=== PATIENT | male | born 1975 | race Two or more races ===

== ENCOUNTER 2017-05-29 05:32 | Inpatient (IN) | payer BC, OTHER ==
[2017-05-29] VITALS (8 sets, daily range): BP systolic 100–160; BP diastolic 70–109
[~2017-05-29] VITALS: Ht 180.3 cm; Wt 82.1 kg
[2017-05-29 06:59] LABS: BASOPHILS % 0.9 % (0.0-2.0); EOSINOPHILS % 0.7 % (0.0-5.0); HEMATOCRIT. 45.9 % (42.0-52.0); HEMOGLOBIN. 16.5 g/dL (14.0-18.0); LYMPHOCYTES % 27.4 % (20.0-50.0); MEAN CORPUSCULAR HEMOGLOBIN 31.7 pg (28.0-32.0); MEAN CORPUSCULAR VOLUME 88.4 fL (80.0-94.0); MEAN PLATELET VOLUME 9.1 fl (7.4-10.4); MONOCYTES % 10.3 % (2.0-8.0); NEUTROPHILS % 60.7 % (40.0-76.0); PLATELET 342 x1000/uL (130-400); RED BLOOD CELL COUNT 5.19 mill/uL (4.7-6.1); RED CELL DISTRIBUTION WIDTH 12.8 % (11.6-14.6)
[2017-05-29 07:02] LABS: PARTIAL THROMBOPLASTIN TIME 28.9 sec (23.4-31.0); PROTHROMBIN TIME 10.8 sec (9.4-11.6)
[2017-05-29 07:18] LABS: BG BASE EXCESS -2.6 mmol/L (-2.0-2.0); BG BILEVEL POS AIRWAY PRESSURE ST=15/5; BG CARBOXYHEMOGLOBIN 2.6 % (0.5-1.5); BG DEOXYHEMOGLOBIN 6.2 % (0.0-5.0); BG FRACTION INSPIRED OXYGEN 60; BG HCO3 ACT 21.6 mmol/L (22.0-26.0); BG METHEMOGLOBIN 0.2 % (0.0-1.5); BG OXYGEN SATURATION 93.6 % (92.0-98.5); BG PCO2 36.5 mmHg (35.0-45.0); BG PH 7.391 (7.350-7.450); BG PRESSURE SUPPORT 10; BG SAMPLE SITE RIGHT BRACHIAL; BG TOTAL HEMOGLOBIN 16.6 g/dL (12.0-18.0); BG VENT MODE MASK - BIPAP; BG VENT RATE 20 set
[2017-05-29 07:22] LABS: CARBON DIOXIDE 23 mEq/L (21-32); CHLORIDE 96 mEq/L (98-107)
[2017-05-29] MEDS ORDERED: LEVOFLOXACIN 750MG PREMIX 150 ML IV ONE (07:45)
[2017-05-29] MEDS ORDERED: CEFTRIAXONE 2 G PREMIX 50 ML IV ONE (07:45)
[2017-05-29] MEDS ORDERED: ENOXAPARIN 80MG/0.8ML SYR SUBCUT NR (08:00)
[2017-05-29] MEDS ORDERED: ASPIRIN 325MG EC TABLET PO NR (08:00)
[2017-05-29] MEDS ORDERED: NITROGLYCERIN 50MG PREMIX 250 ML IV PRN (08:59)
[2017-05-29] MEDS ORDERED: NITROGLYCERIN 0.4MG TABLET SL SL PRN (09:00)
[2017-05-29 10:38] LABS: TROPONIN I 4.4 ng/mL (0.00-0.04)
[2017-05-29] MEDS ORDERED: ASPIRIN 325MG TABLET PO SCH (13:00)
[2017-05-29] MEDS ORDERED: POTASSIUM CHLORIDE 20MEQ TABLET SR PO SCH (13:00)
[2017-05-29] MEDS ORDERED: FUROSEMIDE 40MG/4ML VIAL IVP SCH (13:00)
[2017-05-29] MEDS: ENOXAPARIN 100MG/ML SYR SUBCUT SCH ×2 (13:42→21:39)
[2017-05-29] MEDS: LISINOPRIL 5MG TABLET PO SCH (13:42)
[2017-05-29] MEDS: DOCUSATE SODIUM 100MG CAPSULE PO SCH (13:43)
[2017-05-29] MEDS: METOPROLOL TARTRATE 50MG TABLET PO SCH ×2 (13:43→21:38)
[2017-05-29] MEDS: NITROGLYCERIN OINT 1GM/INCH UDPKT TD SCH ×2 (13:44→17:08)
[2017-05-29] MEDS: AMLODIPINE 5MG TABLET PO SCH (21:00)
[2017-05-29] MEDS ORDERED: ATORVASTATIN CALCIUM 10MG TABLET PO SCH (21:00)
[2017-05-29 23:02] LABS: *AMPHETAMINES SCREEN URINE NEGATIVE (NEGATIVE); *BARBITURATES SCREEN URINE NEGATIVE (NEGATIVE); *BENZODIAZEPINES SCREEN URINE NEGATIVE (NEGATIVE); *COCAINE SCREEN URINE NEGATIVE (NEGATIVE); CANNABINOID URINE SCREEN NEGATIVE (NEGATIVE); METHADONE URINE SCREEN NEGATIVE (NEGATIVE); OPIATES URINE SCREEN NEGATIVE (NEGATIVE); PHENCYCLIDINE URINE SCREEN NEGATIVE (NEGATIVE)
[2017-05-30] VITALS (15 sets, daily range): BP systolic 91–112; BP diastolic 62–79
[2017-05-30] MEDS: NITROGLYCERIN OINT 1GM/INCH UDPKT TD SCH ×4 (06:00→17:17)
[2017-05-30] MEDS: ENOXAPARIN 100MG/ML SYR SUBCUT SCH (08:06)
[2017-05-30] MEDS: ASPIRIN 325MG TABLET PO SCH (08:06)
[2017-05-30] MEDS: DOCUSATE SODIUM 100MG CAPSULE PO SCH (08:07)
[2017-05-30] MEDS: LISINOPRIL 5MG TABLET PO SCH (08:08)
[2017-05-30] MEDS: AMLODIPINE 5MG TABLET PO SCH ×2 (08:08→23:00)
[2017-05-30] MEDS: METOPROLOL TARTRATE 25MG TABLET PO SCH ×2 (08:08→21:32)
[2017-05-30 08:09] LABS: BASOPHILS % 0.9 % (0.0-2.0); EOSINOPHILS % 0.3 % (0.0-5.0); HEMATOCRIT. 38.5 % (42.0-52.0); HEMOGLOBIN. 13.7 g/dL (14.0-18.0); LYMPHOCYTES % 23.7 % (20.0-50.0); MEAN CORPUSCULAR HEMOGLOBIN 31.2 pg (28.0-32.0); MEAN CORPUSCULAR VOLUME 87.3 fL (80.0-94.0); MEAN PLATELET VOLUME 9.2 fl (7.4-10.4); MONOCYTES % 11.6 % (2.0-8.0); NEUTROPHILS % 63.5 % (40.0-76.0); PLATELET 301 x1000/uL (130-400); RED CELL DISTRIBUTION WIDTH 12.6 % (11.6-14.6)
[2017-05-30 08:29] LABS: CARBON DIOXIDE 27 mEq/L (21-32); CHLORIDE 97 mEq/L (98-107)
[2017-05-30] MEDS ORDERED: DEXTROSE 50% WATER 50ML SYRINGE IV PRN (10:45)
[2017-05-30 11:17] LABS: BG BASE EXCESS 2.8 mmol/L (-2.0-2.0); BG BILEVEL POS AIRWAY PRESSURE ST=15/5; BG CARBOXYHEMOGLOBIN 0.3 % (0.5-1.5); BG DEOXYHEMOGLOBIN 1.6 % (0.0-5.0); BG FRACTION INSPIRED OXYGEN 60; BG HCO3 ACT 27.1 mmol/L (22.0-26.0); BG METHEMOGLOBIN 0.3 % (0.0-1.5); BG OXYGEN SATURATION 98.4 % (92.0-98.5); BG OXYHEMOGLOBIN 97.8 % (94.0-97.0); BG PCO2 40.6 mmHg (35.0-45.0); BG PH 7.443 (7.350-7.450); BG PO2 149.3 mmHg (75.0-100.0); BG PRESSURE SUPPORT 10; BG SAMPLE SITE RIGHT BRACHIAL; BG TOTAL HEMOGLOBIN 13.7 g/dL (12.0-18.0); BG VENT MODE MASK - BIPAP; BG VENT RATE 14 set
[2017-05-30] MEDS: BLOOD SUGAR DIAGNOSTIC STRIP TEST SCH ×3 (11:41→21:42)
[2017-05-30] MEDS: INSULIN LISPRO 100 UNITS/ML SUBCUT SCH ×3 (12:38→21:49)
[2017-05-30] MEDS ORDERED: FUROSEMIDE 40MG/4ML VIAL IVP NR (18:00)
[2017-05-30] MEDS: IPRATROPIUM/ALBUTEROL 0.5-3(2.5)MG/3ML NEB HHN SCH (20:43)
[2017-05-30] MEDS: LEVOFLOXACIN 500MG PREMIX 100 ML IV SCH (20:49)
[2017-05-30] MEDS: ATORVASTATIN CALCIUM 20MG TABLET PO SCH (21:30)
[2017-05-30] MEDS: ENOXAPARIN 80MG/0.8ML SYR SUBCUT SCH (21:34)
[2017-05-31] VITALS (16 sets, daily range): BP systolic 98–141; BP diastolic 52–79
[2017-05-31] MEDS: IPRATROPIUM/ALBUTEROL 0.5-3(2.5)MG/3ML NEB HHN SCH ×6 (00:23→21:17)
[2017-05-31] MEDS: NITROGLYCERIN OINT 1GM/INCH UDPKT TD SCH ×5 (00:25→23:51)
[2017-05-31] MEDS: BLOOD SUGAR DIAGNOSTIC STRIP TEST SCH ×4 (06:16→21:33)
[2017-05-31] MEDS: INSULIN LISPRO 100 UNITS/ML SUBCUT SCH ×4 (07:45→21:33)
[2017-05-31] MEDS: DOCUSATE SODIUM 100MG CAPSULE PO SCH (08:27)
[2017-05-31] MEDS: ASPIRIN 325MG TABLET PO SCH (08:27)
[2017-05-31] MEDS: FUROSEMIDE 40MG/4ML VIAL IVP SCH (08:27)
[2017-05-31] MEDS: LISINOPRIL 5MG TABLET PO SCH (08:28)
[2017-05-31] MEDS: METOPROLOL TARTRATE 25MG TABLET PO SCH ×2 (08:28→21:28)
[2017-05-31] MEDS: AMLODIPINE 5MG TABLET PO SCH ×2 (08:28→21:00)
[2017-05-31] MEDS: ENOXAPARIN 80MG/0.8ML SYR SUBCUT SCH ×2 (08:29→21:29)
[2017-05-31] MEDS ORDERED: PNEUMOCOCCAL 23-VAL P-SAC VAC 0.5 ML IM ONE (09:00)
[2017-05-31 10:29] LABS: BASOPHILS % 1.4 % (0.0-2.0); EOSINOPHILS % 0.7 % (0.0-5.0); HEMATOCRIT. 39.7 % (42.0-52.0); HEMOGLOBIN. 13.8 g/dL (14.0-18.0); LYMPHOCYTES % 25.9 % (20.0-50.0); MEAN CORPUSCULAR HEMOGLOBIN 30.6 pg (28.0-32.0); MEAN CORPUSCULAR VOLUME 87.6 fL (80.0-94.0); MEAN PLATELET VOLUME 8.6 fl (7.4-10.4); MONOCYTES % 12.1 % (2.0-8.0); NEUTROPHILS % 59.9 % (40.0-76.0); PLATELET 309 x1000/uL (130-400); RED BLOOD CELL COUNT 4.53 mill/uL (4.7-6.1); RED CELL DISTRIBUTION WIDTH 12.6 % (11.6-14.6)
[2017-05-31 11:05] LABS: CARBON DIOXIDE 30 mEq/L (21-32); CHLORIDE 92 mEq/L (98-107)
[2017-05-31] MEDS ORDERED: POTASSIUM CHLORIDE 20MEQ/PACKET PO SCH (12:15)
[2017-05-31] MEDS: ACETAMINOPHEN 325MG TABLET PO PRN ×2 (17:24→22:19)
[2017-05-31] MEDS: LEVOFLOXACIN 500MG PREMIX 100 ML IV SCH (19:48)
[2017-05-31] MEDS: ATORVASTATIN CALCIUM 20MG TABLET PO SCH (21:30)
[2017-06-01] VITALS (12 sets, daily range): BP systolic 94–129; BP diastolic 44–76
[2017-06-01] MEDS: IPRATROPIUM/ALBUTEROL 0.5-3(2.5)MG/3ML NEB HHN SCH ×6 (01:30→20:53)
[2017-06-01] MEDS: NITROGLYCERIN OINT 1GM/INCH UDPKT TD SCH ×3 (05:42→17:33)
[2017-06-01] MEDS: BLOOD SUGAR DIAGNOSTIC STRIP TEST SCH ×4 (06:50→21:34)
[2017-06-01 07:41] LABS: BASOPHILS % 0.7 % (0.0-2.0); EOSINOPHILS % 0.4 % (0.0-5.0); HEMATOCRIT. 40.8 % (42.0-52.0); HEMOGLOBIN. 14.6 g/dL (14.0-18.0); LYMPHOCYTES % 27.9 % (20.0-50.0); MEAN CORPUSCULAR HEMOGLOBIN 31.5 pg (28.0-32.0); MEAN PLATELET VOLUME 9.1 fl (7.4-10.4); MONOCYTES % 13.1 % (2.0-8.0); NEUTROPHILS % 57.9 % (40.0-76.0); PLATELET 318 x1000/uL (130-400); RED BLOOD CELL COUNT 4.64 mill/uL (4.7-6.1); RED CELL DISTRIBUTION WIDTH 12.7 % (11.6-14.6)
[2017-06-01] MEDS: DOCUSATE SODIUM 100MG CAPSULE PO SCH (08:01)
[2017-06-01] MEDS: ASPIRIN 325MG TABLET PO SCH (08:03)
[2017-06-01] MEDS: AMLODIPINE 5MG TABLET PO SCH ×2 (08:03→21:32)
[2017-06-01] MEDS: ENOXAPARIN 80MG/0.8ML SYR SUBCUT SCH ×2 (08:03→21:34)
[2017-06-01] MEDS: LISINOPRIL 5MG TABLET PO SCH (08:03)
[2017-06-01] MEDS: METOPROLOL TARTRATE 25MG TABLET PO SCH ×2 (08:04→21:32)
[2017-06-01] MEDS: FUROSEMIDE 40MG/4ML VIAL IVP SCH (08:06)
[2017-06-01 08:11] LABS: CARBON DIOXIDE 26 mEq/L (21-32); CHLORIDE 95 mEq/L (98-107)
[2017-06-01] MEDS: INSULIN LISPRO 100 UNITS/ML SUBCUT SCH ×4 (08:11→22:15)
[2017-06-01] MEDS ORDERED: SODIUM CHLORIDE 0.45% 1,000 ML IV SCH (11:00)
[2017-06-01] MEDS: LEVOFLOXACIN 500MG PREMIX 100 ML IV SCH (21:31)
[2017-06-01] MEDS: ATORVASTATIN CALCIUM 20MG TABLET PO SCH (21:31)
[2017-06-02] VITALS (28 sets, daily range): BP systolic 95–141; BP diastolic 51–88
[2017-06-02] MEDS: IPRATROPIUM/ALBUTEROL 0.5-3(2.5)MG/3ML NEB HHN SCH ×6 (00:35→21:32)
[2017-06-02] MEDS: NITROGLYCERIN OINT 1GM/INCH UDPKT TD SCH ×4 (00:40→21:22)
[2017-06-02] MEDS: BLOOD SUGAR DIAGNOSTIC STRIP TEST SCH ×4 (05:33→21:00)
[2017-06-02 07:01] LABS: BASOPHILS % 0.9 % (0.0-2.0); EOSINOPHILS % 0.6 % (0.0-5.0); HEMOGLOBIN. 13.8 g/dL (14.0-18.0); MEAN CORPUSCULAR HEMOGLOBIN 30.8 pg (28.0-32.0); MONOCYTES % 11.4 % (2.0-8.0); NEUTROPHILS % 55.1 % (40.0-76.0); PLATELET 352 x1000/uL (130-400); RED BLOOD CELL COUNT 4.49 mill/uL (4.7-6.1); RED CELL DISTRIBUTION WIDTH 12.7 % (11.6-14.6)
[2017-06-02] MEDS: ENOXAPARIN 80MG/0.8ML SYR SUBCUT SCH ×2 (07:12→21:13)
[2017-06-02] MEDS: INSULIN LISPRO 100 UNITS/ML SUBCUT SCH ×4 (07:20→21:15)
[2017-06-02 08:00] LABS: CARBON DIOXIDE 25 mEq/L (21-32); CHLORIDE 93 mEq/L (98-107)
[2017-06-02] MEDS: FUROSEMIDE 40MG/4ML VIAL IVP SCH (08:20)
[2017-06-02] MEDS: DOCUSATE SODIUM 100MG CAPSULE PO SCH (08:21)
[2017-06-02] MEDS: METOPROLOL TARTRATE 25MG TABLET PO SCH ×2 (08:22→21:12)
[2017-06-02] MEDS: AMLODIPINE 5MG TABLET PO SCH ×2 (08:22→21:00)
[2017-06-02] MEDS: LISINOPRIL 5MG TABLET PO SCH (08:25)
[2017-06-02] MEDS: ASPIRIN 325MG TABLET PO SCH (08:25)
[2017-06-02] MEDS ORDERED: INFLUENZA VIRUS VACCINE 0.5ML SYR IM ONE (09:00)
[2017-06-02] MEDS ORDERED: SODIUM CHLORIDE 0.45% 1,000 ML IV SCH (10:00)
[2017-06-02] MEDS ORDERED: MIDAZOLAM HCL 2 MG/2 ML VIAL ONE (11:46)
[2017-06-02] MEDS ORDERED: FENTANYL CITRATE/PF 50MCG/ML 2ML VIAL ONE (11:46)
[2017-06-02] MEDS ORDERED: IOHEXOL-300 100 ML BOTTLE ONE (11:47)
[2017-06-02] MEDS ORDERED: LIDOCAINE HCL 1% 20ML VIAL (Pyxis) INJ ONE (11:47)
[2017-06-02] MEDS ORDERED: IOVERSOL 240MG/ML 100ML BOTTLE IV ONE (12:18)
[2017-06-02] MEDS ORDERED: ATROPINE SULFATE 0.1MG/ML 10ML DISP.SYRIN ONE (12:24)
[2017-06-02] MEDS ORDERED: IODIXANOL 320MG/ML 100 ML BOTTLE IV ONE (12:28)
[2017-06-02] MEDS ORDERED: CLOPIDOGREL 75MG TABLET ONE (12:51)
[2017-06-02] MEDS ORDERED: ATROPINE SULFATE 1MG/10ML SYR IV PRN ×2 (13:00)
[2017-06-02] MEDS ORDERED: ACETAMINOPHEN 325MG TABLET PO PRN ×2 (13:00)
[2017-06-02] MEDS ORDERED: ZOLPIDEM TARTRATE 5MG TABLET PO PRN (13:45)
[2017-06-02] MEDS: SODIUM CHL 0.45% + KCL 20MEQ/L 1,000 ML IV SCH (14:18)
[2017-06-02] MEDS ORDERED: NITROGLYCERIN 50MCG/ML 10ML VIAL (CATH LAB) IV ONE (14:33)
[2017-06-02] MEDS ORDERED: HEPARIN SODIUM 1,000 UNIT/1ML VIAL IV ONE (14:33)
[2017-06-02] MEDS ORDERED: LEVOFLOXACIN 250MG TABLET PO SCH (20:00)
[2017-06-02] MEDS ORDERED: ATORVASTATIN CALCIUM 40MG TABLET PO SCH (21:00)
[2017-06-03] VITALS (9 sets, daily range): BP systolic 98–118; BP diastolic 57–77
[2017-06-03] MEDS: SODIUM CHL 0.45% + KCL 20MEQ/L 1,000 ML IV SCH (00:20)
[2017-06-03] MEDS: ACETAMINOPHEN 325MG TABLET PO PRN (01:08)
[2017-06-03] MEDS: IPRATROPIUM/ALBUTEROL 0.5-3(2.5)MG/3ML NEB HHN SCH ×4 (05:21→12:37)
[2017-06-03] MEDS: NITROGLYCERIN OINT 1GM/INCH UDPKT TD SCH ×2 (06:11→14:00)
[2017-06-03] MEDS: BLOOD SUGAR DIAGNOSTIC STRIP TEST SCH ×2 (06:40→12:48)
[2017-06-03 06:47] LABS: BASOPHILS % 0.8 % (0.0-2.0); EOSINOPHILS % 1.1 % (0.0-5.0); HEMATOCRIT. 39.3 % (42.0-52.0); HEMOGLOBIN. 13.9 g/dL (14.0-18.0); LYMPHOCYTES % 39.4 % (20.0-50.0); MEAN CORPUSCULAR HEMOGLOBIN 30.8 pg (28.0-32.0); MEAN CORPUSCULAR VOLUME 86.8 fL (80.0-94.0); MEAN PLATELET VOLUME 8.8 fl (7.4-10.4); MONOCYTES % 10.9 % (2.0-8.0); NEUTROPHILS % 47.8 % (40.0-76.0); PLATELET 360 x1000/uL (130-400); RED BLOOD CELL COUNT 4.52 mill/uL (4.7-6.1); RED CELL DISTRIBUTION WIDTH 12.7 % (11.6-14.6)
[2017-06-03 06:55] LABS: CARBON DIOXIDE 26 mEq/L (21-32); CHLORIDE 97 mEq/L (98-107)
[2017-06-03] MEDS: INSULIN LISPRO 100 UNITS/ML SUBCUT SCH ×2 (07:59→13:04)
[2017-06-03] MEDS: AMLODIPINE 5MG TABLET PO SCH (08:40)
[2017-06-03] MEDS: DOCUSATE SODIUM 100MG CAPSULE PO SCH (08:48)
[2017-06-03] MEDS: ASPIRIN 325MG TABLET PO SCH (08:50)
[2017-06-03] MEDS: LISINOPRIL 5MG TABLET PO SCH (08:51)
[2017-06-03] MEDS: METOPROLOL TARTRATE 25MG TABLET PO SCH (08:52)
[2017-06-03] MEDS: ENOXAPARIN 80MG/0.8ML SYR SUBCUT SCH (08:52)
[2017-06-03] MEDS ORDERED: CLOPIDOGREL 75MG TABLET PO SCH (09:00)
[2017-06-03] MEDS ORDERED: FUROSEMIDE 40MG TABLET PO SCH (09:00)
== END 2017-06-03 14:18 | disposition home or self-care (01) | DRG 246 ==
LOC: ER 08:02 → 3WST 09:02 → ENRESERV 10:33
PROVIDERS: ADMIT Internal Medicine; ATTEND Internal Medicine
PROC: 5A09457 Assistance with Respiratory Ventilation, 24-96 Consecutive Hours, Continuous Positive Airway Pressure (ICD-10-PCS; 2017-05-29)
PROC: 027136Z Dilation of Coronary Artery, Two Arteries with Three Drug-eluting Intraluminal Devices, Percutaneous Approach (ICD-10-PCS; principal; 2017-06-02)
PROC: 4A023N7 Measurement of Cardiac Sampling and Pressure, Left Heart, Percutaneous Approach (ICD-10-PCS; 2017-06-02)
PROC: B2111ZZ Fluoroscopy of Multiple Coronary Arteries using Low Osmolar Contrast (ICD-10-PCS; 2017-06-02)
DX: I21.4 Non-ST elevation (NSTEMI) myocardial infarction (principal); J96.01 Acute respiratory failure with hypoxia; I11.0 Hypertensive heart disease with heart failure; J18.9 Pneumonia, unspecified organism; I50.9 Heart failure, unspecified; F17.210 Nicotine dependence, cigarettes, uncomplicated; E87.6 Hypokalemia; E78.5 Hyperlipidemia, unspecified; I34.0 Nonrheumatic mitral (valve) insufficiency; E11.65 Type 2 diabetes mellitus with hyperglycemia; Z79.84 Long term (current) use of oral hypoglycemic drugs
CPT/HCPCS: 36415; 36600; 71010; 71275; 80048; 80053; 80061; 80305; 82375; 82805; 82962; 83605; 83690; 83880; 84484; 85025; 85347; 85379; 85610; 85651; 85730; 87040; 90686; 90732; 92928; 92929; 93005; 93306; 93458; 94640; 94660; 99291; C1760; C1769; C1887; C1893; J0461; J0696; J1644; J1650; J1815; J1940; J1956; J2250; J3010; J3480; J3490; J7040; J7620; Q9967

== ENCOUNTER 2017-07-22 13:30 | Emergency (ER) | payer BC ==
[~2017-07-22] VITALS: Ht 180.3 cm; Wt 82.0 kg
[2017-07-22 18:43] VITALS: BP 114/73
== END 2017-07-22 18:55 | disposition home or self-care (01) ==
LOC: ER 13:55
DX: R51 Headache (principal); E11.9 Type 2 diabetes mellitus without complications; I10 Essential (primary) hypertension; Z87.891 Personal history of nicotine dependence
CPT/HCPCS: 99281; Z7610

== ENCOUNTER 2018-09-12 17:31 | Emergency (ER) | payer SELFPAY ==
[~2018-09-12] VITALS: Ht 180.3 cm; Wt 72.0 kg
[2018-09-13] MEDS ORDERED: KETOROLAC 30MG/ML VIAL IV STA (01:13)
[2018-09-13] MEDS ORDERED: ONDANSETRON HCL 4MG/2ML INJ IV STA (01:13)
[2018-09-13] MEDS ORDERED: SODIUM CHLORIDE 0.9% 1,000 ML IV ONE (01:13)
[2018-09-13 01:49] LABS: BASOPHILS % 0.8 % (0.0-2.0); EOSINOPHILS % 1.4 % (0.0-5.0); HEMATOCRIT. 46.7 % (42.0-52.0); MEAN CORPUSCULAR HEMOGLOBIN 30.6 pg (28.0-32.0); MEAN CORPUSCULAR VOLUME 89.4 fL (80.0-94.0); MEAN PLATELET VOLUME 8.8 fl (7.4-10.4); MONOCYTES % 9.1 % (2.0-8.0); NEUTROPHILS % 28.7 % (40.0-76.0); PLATELET 262 x1000/uL (130-400); RED BLOOD CELL COUNT 5.22 mill/uL (4.7-6.1)
[2018-09-13 01:54] LABS: CLARITY URINE CLEAR (CLEAR); COLOR URINE YELLOW (YELLOW); KETONES URINE NEGATIVE (NEGATIVE); LEUKOCYTE ESTERASE URINE NEGATIVE (NEGATIVE); NITRITE URINE NEGATIVE (NEGATIVE); OCCULT BLOOD URINE NEGATIVE (NEGATIVE); PROTEIN URINE NEGATIVE (NEGATIVE); SPECIFIC GRAVITY URINE 1.023 (1.005-1.030)
[2018-09-13 01:56] LABS: CHLORIDE 99 mEq/L (98-107); PROTHROMBIN TIME 10.4 sec (9.1-11.1)
[2018-09-13 03:10] VITALS: BP 111/74
== END 2018-09-13 03:18 | disposition home or self-care (01) ==
LOC: ER 17:31
DX: R51 Headache (principal); I10 Essential (primary) hypertension; E13.65 Other specified diabetes mellitus with hyperglycemia; F17.200 Nicotine dependence, unspecified, uncomplicated; Z91.14 Patient's other noncompliance with medication regimen
CPT/HCPCS: 36415; 80053; 81003; 82962; 85025; 85610; 93971; 96361; 96374; 96375; 99284; J1885; J2405; J7030